=== PATIENT | female | born 2005 | race Caucasian/White ===

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

== ENCOUNTER 2025-02-09 23:48 | Emergency (ER) | payer OTHER, SELFPAY ==
[2025-02-09 23:51] VITALS: BP 170/116
[2025-02-10 00:01] VITALS: BP 143/113
--- NOTE | 2025-02-10 00:37 | ED.GENMED ---
History of Present Illness
<Tamera Phillips PA-C - Last Filed: 02/10/25 08:47>
General
Chief Complaint: Change in Mental Status
Source: patient
Exam Limitations: none
Time Seen by Provider: 02/10/25 00:07
Nursing documentation reviewed up to this point in time: agreed with
History of Present Illness
History of Present Illness:
The patient is a 20-year-old female with a pmh of anxiety on lexapro presenting with another episode of altered mental status, described as a seizure-like condition by friends accompanying her. An episode began approximately 20 minutes prior to the
emergency department (ED) visit and followed a similar episode that occurred two weeks ago.
During the current episode, the patient is unable to speak or recognize her surroundings but is responsive to stimuli, although she had difficulty moving. Friend reports that she experienced heavy breathing and her hands were cold to the touch.
Prior to this episode, she told her friend that she reported feeling an 'out of body' sensation and tingling, described as 'weird,' after returning from an outing at a department store.
Two weeks prior, the patient experienced multiple instances of consciousness loss, each lasting around five minutes, with no subsequent memory of the occurrences. The condition appeared similar to the current episode but involved more frequent loss
of consciousness. During that time however, she was able to speak and now she does not.
Following the onset of the current episode, the patients friends took her back to her room where she experienced her first episode approximately 30 minutes later. Upon arrival at the ED, she was conversing normally but was unable to do so just
before being checked on by medical personnel. Her friend reports that she was able to walk during this time with guidance.
Past medical history includes anxiety for which she is taking Lexapro. She has no known history of seizures. There is no reported history of headaches, vomiting, or any recent illness. The patient does not follow up with a bacteriology professor and there is
no cardiorespiratory history mentioned.
Contrary to triage note no hx of seizures.
Past History
<Tamera Phillips PA-C - Last Filed: 02/10/25 08:47>
Past History
ED Past Medical History: Other (Murmur); Negative Asthma, HTN, Hypercholesterolemia or NIDDM
ED Past Surgical History: Tonsilectomy
Social History
Tobacco: Smoker
Alcohol: Occasional
Personal: Single
Living: with roommate (College)
Review of Systems
<Tamera Phillips PA-C - Last Filed: 02/10/25 08:47>
Review of Systems
All Other Systems: ROS reviewed and negative except as documented in HPI and ROS
Phy Exam
<Tamera Phillips PA-C - Last Filed: 02/10/25 08:47>
Physical Exam
Physical Exam:
General: Patient is anxious appearing, does not respond verbally or provide history
Skin: Warm and dry, no rashes or lesions
Head: Normocephalic, atraumatic
Eyes: Sclera non-icteric. EOMs intact. No nystagmus. Tearful.
Cardiac: Tachycardia noted, no murmurs
Peripheral Vascular: No lower extremity swelling or edema
Pulm: Patient experiences increased respiratory rate, clear lung sounds bilaterally
Abdomen: No abdominal tenderness to palpation
Neuro: CN II-XII intact, no focal neurologic deficits.
Patient is alert and able to respond to commands but unable to provide verbal response.
Fixed gaze but moves eyes to my command.
Occasional seizure-like tremors noted in upper extremities bilaterally
Psychiatric: Anxious affect.
Course
<Tamera Phillips PA-C - Last Filed: 02/10/25 08:47>
Orders/Labs/Results
Orders:
Orders
02/10/25 00:22
Electrocardiogram (*1) Urgent
Reason for Study: Tachycardia
EKG- Treatment ONCE
Test Result ONCE
02/10/25 00:27
diazePAM [Valium Injection] 2 mg IV NOW STA
02/10/25 00:28
CT Head W/o Iv Contrast Urgent
Comment:
Reason For Exam: altered mental status
02/10/25 00:30
Ceribell [Rapid Point of Care EEG (ED/ICU ONLY)] Q1H
Indications for use:: Altered Mental Status
02/10/25 00:41
Complete Blood Count/With Diff Urgent
Comprehensive Metabolic Panel Urgent
HCG, Serum Qualitative Screen Urgent
Magnesium Urgent
02/10/25 02:50
Telemedicine Psychiatry Conslt Urgent
Service Line: Psychiatric
Nursing Station
Ordering Physician: Tamera Phillips
Referring Physician
Cart Name: Gage
Psych Consult Reason: Change in Mental Status
Psychiatry Consult Location: ED
Patient Needs to be Seen Emergently: Yes
Patient Admitted for NonPsychiatric Reasons: No
Patient in Restraints: No
Patient Requires a Steel Fixer: Yes
Patient's Legal Status is Involuntary: No
Patient Requires a Guardian: No
02/10/25 03:43
Acetaminophen [Tylenol] 1,000 mg PO NOW STA
02/10/25 05:06
Fentanyl, Urine Urgent
Urine Drug Abuse Screen Urgent
Date Specimen was Collected: 02/10/25
Time Specimen was Collected: 00:58
Abnormal Lab Results
02/10/25 02/10/25
00:41 05:06
MPV 10.8 H fL
(7.4-10.4)
U Benzodiazepines Scrn Positive H
(Negative)
02/10/25 00:41
02/10/25 00:41
Vital Signs
Initial and Last Documented VS:
Initial Vital Signs
Temp Pulse Resp BP Pulse Ox
97 F 120 22 170/116 100
02/09/25 23:51 02/09/25 23:51 02/09/25 23:51 02/09/25 23:51 02/09/25 23:51
Last Documented Vital Signs
Temp Pulse Resp BP Pulse Ox
97 F 67 14 118/92 97
02/09/25 23:51 02/10/25 06:30 02/10/25 06:30 02/10/25 04:00 02/10/25 06:30
<Yves Slater, DO - Last Filed: 02/10/25 03:28>
Orders/Labs/Results
Orders:
Orders
02/10/25 00:22
Electrocardiogram (*1) Urgent
Reason for Study: Tachycardia
EKG- Treatment ONCE
Test Result ONCE
02/10/25 00:27
diazePAM [Valium Injection] 2 mg IV NOW STA
02/10/25 00:28
CT Head W/o Iv Contrast Urgent
Comment:
Reason For Exam: altered mental status
02/10/25 00:30
Ceribell [Rapid Point of Care EEG (ED/ICU ONLY)] Q1H
Indications for use:: Altered Mental Status
02/10/25 00:41
Complete Blood Count/With Diff Urgent
Comprehensive Metabolic Panel Urgent
HCG, Serum Qualitative Screen Urgent
Magnesium Urgent
02/10/25 02:50
Telemedicine Psychiatry Conslt Urgent
Service Line: Psychiatric
Nursing Station
Ordering Physician: Tamera Phillips
Referring Physician
Cart Name: Gage
Psych Consult Reason: Change in Mental Status
Psychiatry Consult Location: ED
Patient Needs to be Seen Emergently: Yes
Patient Admitted for NonPsychiatric Reasons: No
Patient in Restraints: No
Patient Requires a Steel Fixer: Yes
Patient's Legal Status is Involuntary: No
Patient Requires a Guardian: No
02/10/25 03:43
Acetaminophen [Tylenol] 1,000 mg PO NOW STA
02/10/25 05:06
Fentanyl, Urine Urgent
Urine Drug Abuse Screen Urgent
Date Specimen was Collected: 02/10/25
Time Specimen was Collected: 00:58
Abnormal Lab Results
02/10/25 02/10/25
00:41 05:06
MPV 10.8 H fL
(7.4-10.4)
U Benzodiazepines Scrn Positive H
(Negative)
02/10/25 00:41
02/10/25 00:41
Vital Signs
Initial and Last Documented VS:
Initial Vital Signs
Temp Pulse Resp BP Pulse Ox
97 F 120 22 170/116 100
02/09/25 23:51 02/09/25 23:51 02/09/25 23:51 02/09/25 23:51 02/09/25 23:51
Last Documented Vital Signs
Temp Pulse Resp BP Pulse Ox
97 F 67 14 118/92 97
02/09/25 23:51 02/10/25 06:30 02/10/25 06:30 02/10/25 04:00 02/10/25 06:30
[place];Tamera Phillips PA-C - Last Filed: 02/10/25 08:47>
MDM/Problems Addressed
Differential Diagnosis Includes:
ddx include Seizure, conversion disorder, panic disorder, essential tremors, functional neurologic disorder
MDM/Problems Addressed:
20-year-old female with a past medical history of anxiety on Lexapro and she is taking oral contraceptive pills presents to the ER today with concerns of change in mental status. She was brought to the ER by her roommate. She is a student at
[employer]. This started after a episode of shopping at the store. She is able to walk with guidance. She had an episode lasting around 40 minutes where she stared off into space, became tachycardic, had rapid breathing and mild tremors. She is
not able to talk during this time but could answer yes and no to questions by shaking her head and writing with normal handwriting. Cerebral bedside ECG was used to help detect any evidence of status epilepticus which showed no evidence of seizure
burden. CT head was normal. Her lab work was unremarkable. She was given a dose of Valium.
Slowly, she came out of the episode after returning from [place] and claims she has no memory of the episode whatsoever however does recall being brought to the ER by her friend however does not recall further details of the episode. I saw patient with
my attending and we strongly suspect underlying psychiatric etiology. Telepsychiatry was consulted and they found no evidence of delusional thought process or cognitive impairment. They suspect her symptoms may be related to a possible adjustment
disorder however what she is adjusting to was unclear.
I want to call patient's family to obtain further history however patient does not give me permission to call them at this time as she is concerned they are sleeping and does not want to wake them up. Psychiatry does recommend neurologic
evaluation. Patient does not want to stay for neuro at bedside. I discussed that bedside neurologic evaluation is my medical recommendation and patient states that she is too tired and wants to go home. I discussed case with Dr. Georges on-call,
who agrees with plan to suspend patient's license in the interim and be evaluated by neurology as an outpatient. Patient stable for discharge. Discussed strict return precautions.
Chronic conditions affecting care:
anxiety
<Tamera Phillips PA-C - Last Filed: 02/10/25 08:47>
*Pulse Oximetry
SaO2: 100
Oxygen Mode of Delivery: Room air
Patient hypoxic: no
*Critical Care Note
Total Time (30-74mins, 75-104mins- exclusive of procedures): Not Applicable
<Tamera Phillips PA-C - Last Filed: 02/10/25 08:47>
Update Note
Update Note:
Patient was evaluated during [facility] downtime.
ED Attending Note
<Tamera Phillips PA-C - Last Filed: 02/10/25 08:47>
-
Portions of this chart may have been created with voice recognition software.� Occasional wrong word or��sound alike� substitutions may have occurred due to the inherent limitations of voice recognition software.
<Yves Slater DO - Last Filed: 02/10/25 03:28>
ED Attending Note
Patient seen and examined by attending physician: Yes
I performed the substantive portion of visit, reviewed & personally made and approve the management plan that is documented in note by myself or ILYA.: Yes
ED Attending Note:
20-year-old female resident of [facility] presents with a period of unresponsiveness. Patient was seen in conjunction with the PA. I reviewed and agree with her history and treatment plan on my independent physical exam is a well-appearing
20-year-old female with the cerebella attached. No seizure burden noted. She is staring off into space. This is a blank stare. She is able to shake her head appropriately to yes and questions. She states that she is unable to talk through yes
and no questions. She is able to write down answers with normal handwriting. I asked her if she can talk and she shook her head no. Her roommate, present at the bedside, states that she has had this once before. She was seen in the emergency
department. Roommate states that when the episode ends, patient has no recollection of anything during this timeframe. Patient does not appear to be in distress. We will continue to monitor
Discharge Plan
Departure
Patient Disposition: Home (Routine Discharge)
Date of Disposition: 02/10/25
Time of Disposition: 06:28
Patient with high blood pressure during this ER visit?: Yes
Condition: Good
Discharge Problem:
Altered mental status, Seizure-like activity
Instructions: Altered Mental Status (DC), BLOOD PRESSURE
Prescriptions:
No Action
sulfamethoxazole-trimethoprim [Bactrim DS] 800-160 mg tablet
1 tab PO BID Qty: 13 0RF
Referrals:
UNKNOWN - PT DOES,NOT KNOW [Family Provider]
Activity Restrictions/Additional Instructions:
DISCUSSED, BY [place] LAW MANDATES THAT YOU CANNOT DRIVE FOR 6 MONTHS, YOU WILL NEED TO BE EVALUATED BY NEUROLOGY
Please follow up with your primary care provider.
PLEASE RETURN TO THE ER SHOULD YOU DEVELOP CHEST PAIN, SHORTNESS OF BREATH, INTRACTABLE NAUSEA OR VOMITING, PERSISTENT TREMORS, LOSS OF CONSCIOUSNESS, URINARY INCONTINENCE, OR ANY OTHER SIGNS OR SYMPTOMS WORRISOME TO YOU.
Interventions
Interventions:
*Risk Screen - Suicide Last Done: 02/10/25 00:46
*General Assessment Last Done: 02/10/25 00:46
*Neglect/Abuse Screening Last Done: 02/10/25 00:46
*ED- Fall Risk Assessment Last Done: 02/10/25 00:46
*ED COVID-19 Vaccine History Last Done: 02/10/25 00:46
*ED Influenza Vaccine History Last Done: 02/10/25 00:46
*Nursing Disposition Last Done: 02/10/25 06:43
ED- Cardiac Assessment Last Done: 02/10/25 04:01
ED- Neurological Assessment Last Done: 02/10/25 04:02
ED- Pulmonary Assessment Last Done: 02/10/25 04:01
ED Swallowing Screen Last Done: 02/10/25 05:14
Discharge Date and Time
Discharge Date/Time: 02/10/25 06:43
Print Language: COMORAN
[2025-02-10] MEDS: VALIUM INJECTION 2 MG IV (00:41)
[2025-02-10 00:45] VITALS: BMI 24.4
[2025-02-10 01:00] VITALS: BP 134/100
[2025-02-10 02:03] LABS: Blood Urea Nitrogen 8 mg/dl (7-17); Estimated Creatinine Clearance > 125 ml/min; Glucose 96 mg/dl (70-99); HCG, Serum Qualitative Screen Negative; Potassium 3.8 mmol/L (3.5-5.1); Sodium 136 mmol/L (135-145); eGFR > 60.00
[2025-02-10 02:04] LABS: ALT (SGPT) 15 U/L (0-35); AST (SGOT) 18 U/L (14-36); Albumin 4.3 g/dl (3.5-5.0); Alkaline Phosphatase 67 U/L (38-126); Calcium 9.3 mg/dl (8.4-10.2); Carbon Dioxide 22 mmol/L (22-30); Chloride 107 mmol/L (98-107); Magnesium 1.9 mg/dl (1.6-2.3); Total Protein 7.5 g/dl (6.3-8.2)
[2025-02-10 02:15] LABS: Hematocrit 37.2 % (37.0-47.0); Hemoglobin 13.1 g/dL (12.0-16.0); Mean Corp Hgb Conc. 35.2 g/dL (33.0-37.0); Mean Corpuscular Volume 83.4 fL (81.0-99.0); Platelet Count 264 10^3/uL (130-400); Red Cell Dist. Width 13.2 % (11.5-14.5)
[2025-02-10 02:16] LABS: Nucleated Red Blood Cells % 0 %
--- NOTE | 2025-02-10 02:29 | DOWNTIME ---
There was a [employer] Downtime on 02/10/2025 from 0100 to 02/10/2025 at 0215. Downtime documentation of patient's care, including medication administrations, has been reconciled in the electronic record per guidelines. Refer to the
patient's paper chart under the miscellaneous tab to see printed paper medication records and downtime forms.
[2025-02-10 03:36] VITALS: BP 119/85
[2025-02-10] MEDS: TYLENOL 1000 MG PO (03:56)
[2025-02-10 04:00] VITALS: BP 118/92
--- NOTE | 2025-02-10 09:49 | W.RAPID.EEG ---
Rapid EEG
-
Procedure Date: 02/09/25
Results:
IMPRESSION:
No evidence of status epilepticus
Recording Information:
Diagnostic Recording Time: 03:36:46 (217 minutes)
Recording 1:
Start Time: Feb 10, 2025 00:40 AM End Time: Feb 10, 2025 04:16 AM
Recording Technique: This EEG was obtained using a 10 lead, 8 channel system positioned circumferentially without any parasagittal coverage (rapid EEG). Computer selected EEG is reviewed as well as background features and all clinically significant
events. Clarity algorithm utilized and implemented to provide analysis of underlying activity and seizure detection used to facilitate reading. ICD-10 Code KL91W01
Clinical History: GAYLE COHEN is a 20 year old Other, Other: POSSIBLE SEIZURE patient undergoing EEG to screen for non-convulsive status epilepticus.
Disclaimer: EEG findings should be interpreted in the context of clinical history and other tests. A normal EEG does not rule out epilepsy or other conditions, and an abnormal EEG is not diagnostic on its own. Technical factors may affect
interpretation. Clinical context is required.
== END 2025-02-10 06:43 | disposition home or self-care (01) ==
LOC: EMR 23:48
PROVIDERS: Physician Assistant; EMERGENCY PHYSICIAN Student in an Organized Health Care Education/Training Program
DX: R41.82 Altered mental status, unspecified (principal); R56.9 Unspecified convulsions; F41.9 Anxiety disorder, unspecified; Z79.899 Other long term (current) drug therapy; F17.200 Nicotine dependence, unspecified, uncomplicated
CPT/HCPCS: 99284; 96374; 70450; 80053; 80306; 80307; 83735; 84703; 85025; 93005